=== PATIENT | female | born 1970 | race Caucasian/White ===

== ENCOUNTER 2017-10-24 17:39 | Emergency (ER) | payer OTHER, BC ==
[~2017-10-24] VITALS: Ht 162.6 cm; Wt 86.2 kg
[~2017-10-24 17:39] MED LIST: ASPI325; ASPI81EC PO; CALCA400CH; CYAN100; ERGO400 PO; Hair, Skin & N1 EACH; IBUP800; IRON 100 PLUS1 EACH; IRON150C PO; LISHYD2012 PO; LOVA40; MAGOXI400; MECL25 PO; METF850 PO; ONDA8ODT MM; POTA20PAC; POTCHL10ER PO; SPIR25 PO; Vitamin D2000 UNIT PO
[2017-10-26 13:16] LABS: HCV Non Reactive (NR)
== END 2017-10-24 18:55 | disposition home or self-care (01) ==
LOC: ER 17:39
PROVIDERS: Physician Assistant
DX: Z77.21 Contact with and (suspected) exposure to potentially hazardous body fluids (principal); E11.9 Type 2 diabetes mellitus without complications; I10 Essential (primary) hypertension; Z87.891 Personal history of nicotine dependence
CPT/HCPCS: 84460; 86701; 86702; 86706; 86803; 99283

== ENCOUNTER → 2018-02-26 | Outpatient (CLI) | payer OTHER, BC ==
[2018-02-28 03:10] LABS: HIV SCREEN 4TH GENERATION WRFX Non Reactive (Non Reactive)
== END | disposition home or self-care (01) ==
LOC: LAB SHORT 16:40 → LAB 16:40
PROVIDERS: Hospitalist
DX: Z20.5 Contact with and (suspected) exposure to viral hepatitis (principal)
CPT/HCPCS: 87389

== ENCOUNTER → 2018-04-28 | Outpatient (CLI) | payer BC | END | disposition home or self-care (01) | LOC: LAB SHORT 12:47 → LAB 12:47 | PROVIDERS: Obstetrics & Gynecology | DX: Z01.419 Encounter for gynecological examination (general) (routine) without abnormal findings (principal) | CPT/HCPCS: 87624; G0123 ==

== ENCOUNTER → 2019-09-29 | Outpatient (CLI) | payer OTHER ==
[2019-09-29 14:39] LABS: Candida species (DNA Probe) Negative (NEGATIVE); G. vaginalis (DNA Probe) Positive (NEGATIVE); T. vaginalis (DNA Probe) Negative (NEGATIVE)
== END | disposition home or self-care (01) ==
LOC: LAB 10:00 → LAB SHORT 10:00
PROVIDERS: Obstetrics & Gynecology
DX: N76.0 Acute vaginitis (principal)
CPT/HCPCS: 87480; 87510; 87660

== ENCOUNTER → 2020-03-27 | Outpatient (CLI) | payer OTHER | END | disposition home or self-care (01) | LOC: LAB EV 11:32 → LAB SHORT 11:32 | DX: N39.0 Urinary tract infection, site not specified (principal) | CPT/HCPCS: 87077; 87086; 87186 ==

== ENCOUNTER → 2021-08-03 | Outpatient (CLI) | payer OTHER ==
[2021-08-07 13:10] LABS: HPV 16 Negative (Negative); HPV 18 Negative (Negative); HPV OTHER HR TYPES Negative (Negative)
== END | disposition home or self-care (01) ==
LOC: LAB SHORT 14:43 → LAB 14:43
PROVIDERS: Obstetrics & Gynecology
DX: Z01.419 Encounter for gynecological examination (general) (routine) without abnormal findings (principal)
CPT/HCPCS: 87624; G0123

== ENCOUNTER → 2024-04-21 | Outpatient (CLI) | payer BC | END | disposition home or self-care (01) | LOC: LAB SHORT 08:50 | DX: E11.9 Type 2 diabetes mellitus without complications (principal); E78.2 Mixed hyperlipidemia; R63.5 Abnormal weight gain; Z98.84 Bariatric surgery status | CPT/HCPCS: 82043 ==

== ENCOUNTER 2024-06-25 20:41 | Emergency (ER) | payer BC ==
[~2024-06-25] VITALS: Ht 160 cm; Wt 90.7 kg
[2024-06-25] MEDS ORDERED: Adipex-P37.5 M1 PO (23:03)
[2024-06-25] MEDS ORDERED: OZEMPIC0.25 MG/02 SQ (23:03)
[2024-06-25] MEDS ORDERED: SERT50 PO (23:03)
[2024-06-25] MEDS ORDERED: Diphth,Pertuss(Acell),Tet Vac 0.5 ML VIAL IM ONE (23:40)
[2024-06-25] MEDS ORDERED: Ketorolac Tromethamine 30mg Vial IM ONE (23:40)
[2024-06-26 01:53] VITALS: BP 173/80
== END 2024-06-26 02:00 | disposition home or self-care (01) ==
LOC: ER 20:41
DX: S06.0X0A Concussion without loss of consciousness, initial encounter (principal); S52.122A Displaced fracture of head of left radius, initial encounter for closed fracture; S01.112A Laceration without foreign body of left eyelid and periocular area, initial encounter; I10 Essential (primary) hypertension; E11.9 Type 2 diabetes mellitus without complications; V89.2XXA Person injured in unspecified motor-vehicle accident, traffic, initial encounter; Z79.899 Other long term (current) drug therapy
CPT/HCPCS: 12011; 29105; 73080; 73100; 73502; 90471; 90715; 96372; 99283-25; J1885